=== PATIENT | female | born 1990 | race Caucasian/White ===

== ENCOUNTER 2016-03-20 19:34 | Emergency (ER) | payer MEDICAID ==
[~2016-03-20] VITALS: Ht 170.2 cm; Wt 93.6 kg
[2016-03-20 19:37] VITALS: TEMP 98
[2016-03-20] MEDS ORDERED: PRENATAL (19:41)
[2016-03-20 20:08] LABS: BASO % 0.4 % (0.0-2.0); EOS # 0.2 (0.0-0.7); EOS % 1.4 % (0-4.0); GRAN # 7.7 (1.4-6.5); GRAN % 68.9 % (42.2-75.2); HEMOGLOBIN 12.3 g/dl (12.5-16.0); LYMPH # 2.7 (1.2-3.4); LYMPH % 23.6 % (20.0-51.0); MEAN CELL VOLUME 80 fl (80.0-100.0); MEAN CORPUSCULAR HEMOGLOBIN 27 pg (27.0-31.0); MEAN CORPUSCULAR HGB CONC 33 g/dl (33.0-37.0); MEAN PLATELET VOLUME 10.3 fl (7.4-10.4); MONO # 0.6 (0.1-0.6); MONO % 5.1 % (1.7-9.3); PLATELET COUNT 281 K/mm3 (130-400); REDCELL DISTRIBUTION WIDTH-CV 13.5 % (11.5-14.5); WHITE BLOOD COUNT 11.2 K/mm3 (4.8-10.8)
[2016-03-20 20:19] LABS: ADJUSTED CALCIUM 9.9 mg/dL (8.4-10.2); ALBUMIN 3.8 gm/dL (3.5-5.0); BILIRUBIN,TOTAL 0.6 mg/dL (0.0-1.0); CALCIUM 9.7 mg/dL (8.4-10.2); CREATININE, serum 0.64 mg/dL (0.52-1.25); MAGNESIUM 1.8 mg/dL (1.6-2.3); POTASSIUM 3.7 mmol/L (3.4-5.0); TOTAL PROTEIN 7.4 gm/dL (6.4-8.2)
[2016-03-20 20:30] LABS: HEMATOCRIT 36.9 % (37.0-47.0)
[2016-03-20 20:44] LABS: PH 7 (5-8); URINE APPEARANCE Cloudy; URINE BACTERIA Rare /hpf; URINE BILIRUBIN Negative (NEGATIVE); URINE BLOOD Negative (NEGATIVE); URINE COLOR Yellow; URINE GLUCOSE Negative (NEGATIVE); URINE KETONE Negative (NEGATIVE); URINE UROBILINOGEN Negative (NEGATIVE)
[2016-03-20 20:45] LABS: URINE RBC 0-2 /hpf
[2016-03-20] MEDS ORDERED: PHENERGAN 25 TA25 MG PO (22:15)
[2016-03-20 22:30] VITALS: BP 107/63; PULSE 77
[2016-03-20] MEDS ORDERED: DIFLUCAN150 MG PO (23:22)
[2016-03-21 00:22] LABS: CHLAMYDIA/TRACH by PCR Female Not Detected; NEISSERIA GON by PCR Female Not Detected
== END 2016-03-20 22:31 | disposition home or self-care (01) ==
LOC: COL.ER 19:34
PROVIDERS: Emergency Medicine
DX: O99.89 Other specified diseases and conditions complicating pregnancy, childbirth and the puerperium (principal); R10.2 Pelvic and perineal pain; Z3A.20 20 weeks gestation of pregnancy
CPT/HCPCS: J2550; J7030

== ENCOUNTER 2016-05-13 11:13 | Outpatient (CLI) | payer MEDICAID ==
[~2016-05-13] VITALS: Ht 170.2 cm; Wt 96.4 kg
[~2016-05-13 11:13] MED LIST: DIFLUCAN150 MG PO; PHENERGAN 25 TA25 MG PO; PRENATAL
[2016-05-13 11:23] VITALS: BP 114/67; PULSE 92; TEMP 97.9
[2016-05-13] MEDS ORDERED: OSCAL 500 TAB500 MG PO (11:31)
[2016-05-13] MEDS ORDERED: VITAMIN D 1001000 IU PO (11:31)
[2016-05-13] MEDS ORDERED: PROAIR HFA0.09 MG/AC IH (11:31)
== END 2016-05-13 12:15 | disposition home or self-care (01) ==
LOC: LDRO 11:13
DX: O26.892 Other specified pregnancy related conditions, second trimester (principal); R10.2 Pelvic and perineal pain; O99.213 Obesity complicating pregnancy, third trimester; Z3A.27 27 weeks gestation of pregnancy

== ENCOUNTER 2016-06-21 18:52 | Outpatient (CLI) | payer MEDICAID ==
[~2016-06-21] VITALS: Ht 170.2 cm; Wt 99.1 kg
[~2016-06-21 18:52] MED LIST changes: +OSCAL 500 TAB500 MG PO; +PROAIR HFA0.09 MG/AC IH; +VITAMIN D 1001000 IU PO
[2016-06-21 19:41] VITALS: BP 112/63; PULSE 115; TEMP 97.6
[2016-06-21 20:00] VITALS: BP 107/55; PULSE 104
[2016-06-21 20:27] LABS: BASO % 0.3 % (0.0-2.0); EOS # 0.2 (0.0-0.7); EOS % 1.7 % (0-4.0); GRAN # 4.9 (1.4-6.5); GRAN % 55.7 % (42.2-75.2); HEMATOCRIT 30.7 % (37.0-47.0); HEMOGLOBIN 9.8 g/dl (12.5-16.0); LYMPH % 33.8 % (20.0-51.0); MEAN CELL VOLUME 80 fl (80.0-100.0); MEAN CORPUSCULAR HEMOGLOBIN 25 pg (27.0-31.0); MEAN CORPUSCULAR HGB CONC 32 g/dl (33.0-37.0); MEAN PLATELET VOLUME 10.2 fl (7.4-10.4); MONO # 0.7 (0.1-0.6); PLATELET COUNT 251 K/mm3 (130-400); RED BLOOD COUNT 3.85 M/mm3 (4.10-5.30); REDCELL DISTRIBUTION WIDTH-CV 14.2 % (11.5-14.5); WHITE BLOOD COUNT 8.8 K/mm3 (4.8-10.8)
[2016-06-21 20:30] VITALS: BP 92/51; PULSE 101
[2016-06-21 20:33] LABS: ADJUSTED CALCIUM 9.8 mg/dL (8.4-10.2); ALBUMIN 3.3 gm/dL (3.5-5.0); BILIRUBIN,TOTAL 0.5 mg/dL (0.0-1.0); CALCIUM 9.2 mg/dL (8.4-10.2); CREATININE, serum 0.74 mg/dL (0.52-1.25); POTASSIUM 3.7 mmol/L (3.4-5.0); TOTAL PROTEIN 6.3 gm/dL (6.4-8.2)
[2016-06-21 20:34] LABS: PH 6 (5-8); SQUAMOUS EPITHELIAL 0-2 /hpf; URINE APPEARANCE Hazy; URINE BACTERIA None Seen /hpf; URINE BILIRUBIN Negative (NEGATIVE); URINE BLOOD Negative (NEGATIVE); URINE COLOR Yellow; URINE GLUCOSE Negative (NEGATIVE); URINE KETONE Negative (NEGATIVE); URINE RBC 0-2 /hpf; URINE UROBILINOGEN Negative (NEGATIVE); URINE WBC 0-2 /hpf
[2016-06-21 21:00] VITALS: BP 101/56; PULSE 94
== END 2016-06-21 21:10 | disposition home or self-care (01) ==
LOC: LDRO 18:52
PROVIDERS: Student in an Organized Health Care Education/Training Program
DX: O26.893 Other specified pregnancy related conditions, third trimester (principal); R51 Headache; R42 Dizziness and giddiness; Z3A.33 33 weeks gestation of pregnancy

== ENCOUNTER 2016-07-17 18:09 | Outpatient (CLI) | payer MEDICAID ==
[~2016-07-17] VITALS: Ht 170.2 cm; Wt 102.7 kg
[2016-07-17 18:47] VITALS: BP 104/61; PULSE 84; TEMP 97.9
[2016-07-17] MEDS ORDERED: TYLENOL 325MG325 MG PO (18:59)
[2016-07-17 19:00] VITALS: BP 104/61; PULSE 84; TEMP 97.9
[2016-07-17 19:10] LABS: BASO % 0.4 % (0.0-2.0); EOS # 0.3 (0.0-0.7); EOS % 3.2 % (0-4.0); GRAN # 4.7 (1.4-6.5); GRAN % 57.3 % (42.2-75.2); LYMPH # 2.6 (1.2-3.4); LYMPH % 32.1 % (20.0-51.0); MEAN CELL VOLUME 77 fl (80.0-100.0); MEAN CORPUSCULAR HGB CONC 32 g/dl (33.0-37.0); MEAN PLATELET VOLUME 11.6 fl (7.4-10.4); MONO # 0.6 (0.1-0.6); MONO % 6.9 % (1.7-9.3); PLATELET COUNT 239 K/mm3 (130-400); RED BLOOD COUNT 4.11 M/mm3 (4.10-5.30); REDCELL DISTRIBUTION WIDTH-CV 14.3 % (11.5-14.5); WHITE BLOOD COUNT 8.2 K/mm3 (4.8-10.8)
[2016-07-17 19:11] LABS: HEMATOCRIT 31.8 % (37.0-47.0); HEMOGLOBIN 10.2 g/dl (12.5-16.0); MEAN CORPUSCULAR HEMOGLOBIN 25 pg (27.0-31.0)
[2016-07-17 19:15] LABS: ADJUSTED CALCIUM 9.9 mg/dL (8.4-10.2); ALBUMIN 3.2 gm/dL (3.5-5.0); BILIRUBIN,TOTAL 0.5 mg/dL (0.0-1.0); CALCIUM 9.3 mg/dL (8.4-10.2); CREATININE, serum 0.68 mg/dL (0.52-1.25); POTASSIUM 3.7 mmol/L (3.4-5.0); TOTAL PROTEIN 6.4 gm/dL (6.4-8.2)
[2016-07-17 19:30] VITALS: BP 97/55; PULSE 82
[2016-07-17 19:31] LABS: PH 6 (5-8); SQUAMOUS EPITHELIAL 0-2 /hpf; URINE APPEARANCE Hazy; URINE BACTERIA None Seen /hpf; URINE BILIRUBIN Negative (NEGATIVE); URINE BLOOD Negative (NEGATIVE); URINE COLOR Yellow; URINE GLUCOSE Negative (NEGATIVE); URINE KETONE Negative (NEGATIVE); URINE RBC 0-2 /hpf; URINE UROBILINOGEN Negative (NEGATIVE); URINE WBC 0-2 /hpf
[2016-07-17 20:00] VITALS: BP 93/52; PULSE 78
[2016-07-17 20:16] VITALS: BP 97/55; PULSE 71
== END 2016-07-17 20:45 | disposition home or self-care (01) ==
LOC: LDRO 18:09
PROVIDERS: Obstetrics & Gynecology
DX: O26.893 Other specified pregnancy related conditions, third trimester (principal); R51 Headache; Z3A.37 37 weeks gestation of pregnancy

== ENCOUNTER 2016-08-02 10:18 | Inpatient (IN) | payer MEDICAID ==
[2016-08-02] VITALS (18 sets, daily range): BP systolic 12–151; BP diastolic 52–82; PULSE 71–97; TEMP 97.8–97.9
[~2016-08-02] VITALS: Ht 170.3 cm; Wt 102.3 kg
[~2016-08-02 10:18] MED LIST changes: +TYLENOL 325MG325 MG PO
[2016-08-02 11:37] LABS: BASO % 0.1 % (0.0-2.0); EOS # 0.2 (0.0-0.7); EOS % 1.9 % (0-4.0); GRAN # 5.3 (1.4-6.5); GRAN % 67.5 % (42.2-75.2); LYMPH % 25.2 % (20.0-51.0); MEAN CELL VOLUME 77 fl (80.0-100.0); MEAN CORPUSCULAR HGB CONC 32 g/dl (33.0-37.0); MEAN PLATELET VOLUME 11.1 fl (7.4-10.4); MONO # 0.4 (0.1-0.6); MONO % 5.2 % (1.7-9.3); PLATELET COUNT 246 K/mm3 (130-400); RED BLOOD COUNT 4.49 M/mm3 (4.10-5.30); REDCELL DISTRIBUTION WIDTH-CV 14.6 % (11.5-14.5); WHITE BLOOD COUNT 7.9 K/mm3 (4.8-10.8)
[2016-08-02 11:45] LABS: HEMATOCRIT 34.5 % (37.0-47.0); HEMOGLOBIN 10.9 g/dl (12.5-16.0); MEAN CORPUSCULAR HEMOGLOBIN 24 pg (27.0-31.0)
[2016-08-03 00:20] VITALS: BP 101/48; PULSE 70; TEMP 98.1
[2016-08-03 05:00] VITALS: BP 99/39; PULSE 52; TEMP 98
[2016-08-03 07:09] LABS: HEMATOCRIT 30.3 % (37.0-47.0); HEMOGLOBIN 9.3 g/dl (12.5-16.0)
[2016-08-03] MEDS ORDERED: PERCOCET 325 MG1 TA2 PO (08:46)
[2016-08-03] MEDS ORDERED: IBU600 MG PO (08:46)
[2016-08-03 09:35] VITALS: BP 116/61; PULSE 58
[2016-08-03 20:45] VITALS: BP 105/54; PULSE 78; TEMP 97.9
[2016-08-04 07:45] VITALS: BP 104/51; PULSE 66; TEMP 97.8
== END 2016-08-04 13:50 | disposition home or self-care (01) | DRG 766 ==
LOC: OB 10:32
PROVIDERS: Obstetrics & Gynecology
PROC: 10D00Z1 Extraction of Products of Conception, Low, Open Approach (ICD-10-PCS; principal; 2016-08-02)
PROC: 0UB70ZZ Excision of Bilateral Fallopian Tubes, Open Approach (ICD-10-PCS; 2016-08-02)
DX: O44.43 Low lying placenta NOS or without hemorrhage, third trimester (principal); O99.283 Endocrine, nutritional and metabolic diseases complicating pregnancy, third trimester; E55.9 Vitamin D deficiency, unspecified; Z3A.39 39 weeks gestation of pregnancy; Z37.0 Single live birth; Z40.09 Encounter for prophylactic removal of other organ
CPT/HCPCS: A9284; J2175; J2405; J7120

== ENCOUNTER 2017-06-07 22:47 | Emergency (ER) | payer MEDICAID ==
[~2017-06-07] VITALS: Ht 170.2 cm; Wt 96.0 kg
[~2017-06-07 22:47] MED LIST changes: +IBU600 MG PO; +PERCOCET 325 MG1 TA2 PO
[2017-06-07 22:51] VITALS: BP 129/78; PULSE 81; TEMP 97.7
[2017-06-07] MEDS ORDERED: CEFACLOR500 M2 PO (22:56)
[2017-06-07 23:22] LABS: COLLECTION METHOD CLEAN CATCH
[2017-06-07 23:28] LABS: AMORPHOUS CRYSTAL Present /uL; PH 7 (5-8); SQUAMOUS EPITHELIAL None Seen /hpf; URINE APPEARANCE Hazy; URINE BACTERIA None Seen /hpf; URINE BILIRUBIN Negative (NEGATIVE); URINE BLOOD 1+ (NEGATIVE); URINE COLOR Yellow; URINE GLUCOSE Negative (NEGATIVE); URINE KETONE Negative (NEGATIVE); URINE LEUKOCYTE ESTERASE Negative (NEGATIVE); URINE NITRATE Negative (NEGATIVE); URINE PROTEIN(semi-quant) Negative (NEGATIVE); URINE RBC 0-2 /hpf
[2017-06-07 23:33] LABS: BASO % 0.3 % (0.0-2.0); EOS # 0.3 (0.0-0.7); EOS % 3.1 % (0-4.0); GRAN # 4.9 (1.4-6.5); HEMATOCRIT 38.2 % (37.0-47.0); HEMOGLOBIN 12.6 g/dl (12.5-16.0); LYMPH # 3.3 (1.2-3.4); LYMPH % 35.6 % (20.0-51.0); MEAN CELL VOLUME 83 fl (80.0-100.0); MEAN CORPUSCULAR HEMOGLOBIN 27 pg (27.0-31.0); MEAN CORPUSCULAR HGB CONC 33 g/dl (33.0-37.0); MEAN PLATELET VOLUME 9.8 fl (7.4-10.4); MONO # 0.6 (0.1-0.6); MONO % 6.8 % (1.7-9.3); PLATELET COUNT 281 K/mm3 (130-400); RED BLOOD COUNT 4.63 M/mm3 (4.10-5.30); REDCELL DISTRIBUTION WIDTH-CV 13.1 % (11.5-14.5)
[2017-06-07 23:42] LABS: ALBUMIN 4.1 gm/dL (3.5-5.0); BILIRUBIN,TOTAL 0.4 mg/dL (0.0-1.0); CALCIUM 9.5 mg/dL (8.4-10.2); CREATININE, serum 0.86 mg/dL (0.52-1.25); TOTAL PROTEIN 7.6 gm/dL (6.4-8.2)
== END 2017-06-08 00:54 | disposition home or self-care (01) ==
LOC: COL.ER 22:47
PROVIDERS: Nurse Practitioner
DX: N92.0 Excessive and frequent menstruation with regular cycle (principal)

== ENCOUNTER 2018-02-24 10:58 | Emergency (ER) | payer MEDICAID ==
[~2018-02-24] VITALS: Ht 170.2 cm; Wt 95.5 kg
[~2018-02-24 10:58] MED LIST changes: +CEFACLOR500 M2 PO
[2018-02-24 11:01] VITALS: TEMP 97.7
[2018-02-24] MEDS ORDERED: GOOD NEIGH1200 MG/15 (11:18)
[2018-02-24] MEDS ORDERED: TYLENOL 325MG325 MG PO (11:19)
[2018-02-24 12:40] LABS: COLLECTION METHOD CLEAN CATCH
[2018-02-24 13:28] LABS: MUCOUS Present /lpf; PH 7 (5-8); URINE APPEARANCE Clear; URINE BACTERIA None Seen /hpf; URINE BILIRUBIN Negative (NEGATIVE); URINE BLOOD Negative (NEGATIVE); URINE COLOR Yellow; URINE GLUCOSE Negative (NEGATIVE); URINE KETONE Negative (NEGATIVE); URINE LEUKOCYTE ESTERASE Negative (NEGATIVE); URINE NITRATE Negative (NEGATIVE); URINE PROTEIN(semi-quant) Negative (NEGATIVE); URINE RBC 0-2 /hpf; URINE UROBILINOGEN Negative (NEGATIVE)
[2018-02-24 14:18] VITALS: BP 130/77; PULSE 81
== END 2018-02-24 14:16 | disposition home or self-care (01) ==
LOC: COL.ER 10:58
PROVIDERS: Nurse Practitioner
DX: K59.00 Constipation, unspecified (principal); Z98.51 Tubal ligation status; Z98.890 Other specified postprocedural states; Z88.8 Allergy status to other drugs, medicaments and biological substances

== ENCOUNTER 2018-08-06 08:28 | Emergency (ER) | payer BC ==
[~2018-08-06] VITALS: Ht 170.2 cm; Wt 90.9 kg
[~2018-08-06 08:28] MED LIST changes: +GOOD NEIGH1200 MG/15
[2018-08-06 08:47] VITALS: BP 130/77; PULSE 79; TEMP 98.4
[2018-08-06] MEDS ORDERED: CILOXAN 5 ML5 ML OD (09:12)
[2018-08-06] MEDS ORDERED: FLONASEALLERGY NS (09:12)
== END 2018-08-06 09:30 | disposition home or self-care (01) ==
LOC: COL.ER 08:28
DX: B99.9 Unspecified infectious disease (principal); H10.89 Other conjunctivitis